=== PATIENT | male | born 1960 | race Caucasian/White ===

== ENCOUNTER 2017-12-02 15:04 | Emergency (ER) | payer BC ==
[2017-12-02] MEDS ORDERED: cefTRIAXone 1 GM, Lidocaine 1% 2.1 ML IM SCH ×2 (15:45)
--- NOTE | 2017-12-02 15:55 | EDM.PDOC ---
ED HPI GENERAL MEDICAL PROBLEM - General Chief Complaint: Lower Extremity Injury/Pain Stated Complaint: LEFT FOOT INJURY Time Seen by Provider: 12/02/17 15:24 Source of Information: Reports: Patient History Limitations: Reports: No Limitations - History of Present Illness INITIAL COMMENTS - FREE TEXT/NARRATIVE: The patient presents with left leg edema and redness. He was snorkling in the [employer] on the 16th and cut his foot and his lower leg on the bottom. He developed redness and swelling around the abrasion on his lower leg. He has no fever or chills. He is diabetic so he was worried this is an infection. Onset: Sudden Duration: Week(s): (1) Location: Reports: Lower Extremity, Left Quality: Reports: Sharp Severity: Mild Improves with: Reports: None Worsens with: Reports: None Associated Symptoms: Reports: No Other Symptoms - Related Data Allergies Allergy/AdvReac Type Severity Reaction Status Date / Time No Known Allergies Allergy Verified 12/02/17 15:21 Home Meds: Home Meds Doxycycline [Vibramycin] 100 mg PO BID #20 cap 12/02/17 [Rx] Lisinopril 1 tab PO DAILY 12/02/17 [History] metFORMIN [Glucophage] 500 mg PO BID 12/02/17 [History] Past Medical History Cardiovascular History: Reports: Hypertension Social & Family History - Tobacco Use Years of Tobacco use: 15 Packs/Tins Daily: 1 - Caffeine Use Caffeine Use: Reports: Tea - Recreational Drug Use Recreational Drug Use: No Review of Systems - Review of Systems Review Of Systems: See Below Constitutional: Reports: No Symptoms Eyes: Reports: No Symptoms Ears: Reports: No Symptoms Nose: Reports: No Symptoms Mouth/Throat: Reports: No Symptoms Respiratory: Reports: No Symptoms Cardiovascular: Reports: No Symptoms GI/Abdominal: Reports: No Symptoms Genitourinary: Reports: No Symptoms Musculoskeletal: Reports: Other (Swelling and redness to his left leg) ED EXAM, GENERAL - Physical Exam Exam: See Below Exam Limited By: No Limitations General Appearance: Alert, No Apparent Distress Ears: Normal External Exam Nose: Normal Inspection Head: Atraumatic, Normocephalic Neck: Normal Inspection Respiratory/Chest: No Respiratory Distress Extremities: Other (Abrasion to the anterior lower leg with edema and erythema. He does have a 2cm laceration to his left foot but that is through the calus on the ball of his foot.) Course - Vital Signs Last Recorded V/S: Last Vital Signs Temp 98.0 F 12/02/17 15:18 Pulse 70 12/02/17 15:18 Resp 24 H 12/02/17 15:18 BP 147/81 H 12/02/17 15:18 Pulse Ox 95 12/02/17 15:18 - Orders/Labs/Meds Orders: Active Orders 24 hr Category Date Time Status cefTRIAXone [Rocephin] 1 gm Med 12/02/17 15:45 Active Lidocaine 1% [Xylocaine 1%] 2.1 ml IM Q24H Medication Orders Ceftriaxone Sodium 1 gm/ (Lidocaine HCl 2.1 ml) 0 gm IM Q24H SUDEEP Meds: Medications Generic Name Dose Route Start Last Admin Trade Name Freq PRN Reason Stop Dose Admin Ceftriaxone Sodium 1 gm/ 0 gm 12/02/17 15:45 Lidocaine HCl 2.1 ml IM Q24H SUDEEP - Re-Assessments/Exams Free Text/Narrative Re-Assessment/Exam: 12/02/17 15:54 I ordered rocephin 1 gram IM. I will get him on some doxycycline. Departure - Departure Time of Disposition: 15:55 Disposition: Home, Self-Care 01 Condition: Good Clinical Impression: Cellulitis of left leg - Discharge Information Prescriptions: Doxycycline [Vibramycin] 100 mg PO BID #20 cap Referrals: PCP,None [Primary Care Provider] - Sidra Rhodes, [employer] [ED Midlevel Provider] - 1 Week Additional Instructions: Clean the wound in warm soapy water 2 times per day and apply antibiotics after. Put warm compresses on the infection at least 2 times per day for 5 days. Take the docycycline 1 pill 2 times per day for 10 days. Please return if you are worse. - My Orders Last 24 Hours: My Active Orders 12/02/17 15:45 cefTRIAXone [Rocephin] 1 gm Lidocaine 1% [Xylocaine 1%] 2.1 ml IM Q24H - Assessment/Plan Last 24 Hours: My Active Orders 12/02/17 15:45 cefTRIAXone [Rocephin] 1 gm Lidocaine 1% [Xylocaine 1%] 2.1 ml IM Q24H
== END 2017-12-02 16:10 | disposition home or self-care (01) ==
LOC: JD.ED 15:04
DX: L03.116 Cellulitis of left lower limb (principal); I10 Essential (primary) hypertension; Z79.899 Other long term (current) drug therapy
CPT/HCPCS: 96372; 99283; J0696